=== PATIENT | male | born 1990 | race Two or more races ===

== ENCOUNTER 2020-10-22 08:00 | Outpatient (CLI) | payer SELFPAY ==
[2020-10-24 11:51] LABS: HEPATITIS B SURFACE ANTIGEN NON-REACTIVE (NON-REACTIVE); HEPATITIS C ANTIBODY NON-REACTIVE (NON-REACTIVE)
[2020-10-25 13:56] LABS: HSV 1 IGG TYPE SPECIFIC AB <0.90 index; HSV 2 IGG TYPE SPECIFIC AB <0.90 index
== END 2020-10-22 23:59 | disposition home or self-care (01) ==
LOC: LAB.S 08:00
PROVIDERS: ATTEND Emergency Medicine
DX: J02.9 Acute pharyngitis, unspecified (principal); Z71.89 Other specified counseling
CPT/HCPCS: 81599; 86317; 86592; 86695; 86696; 86803; 87340; 87491; 87591; 87661